=== PATIENT | female | born 1980 | race Caucasian/White ===

== ENCOUNTER 2017-10-06 19:32 | Emergency (ER) | payer SELFPAY | END 2017-10-06 20:55 | disposition home or self-care (01) | LOC: D.ER 19:32 | DX: S50.01XA Contusion of right elbow, initial encounter (principal); S53.401A Unspecified sprain of right elbow, initial encounter; V43.62XA Car passenger injured in collision with other type car in traffic accident, initial encounter; Y93.89 Activity, other specified; Y92.410 Unspecified street and highway as the place of occurrence of the external cause; E11.9 Type 2 diabetes mellitus without complications ==

== ENCOUNTER 2018-02-02 16:44 | Emergency (ER) | payer SELFPAY ==
[2018-02-02] MEDS ORDERED: TYLENOL W/CODEI1 TAB PO (20:37)
[2018-02-02 20:50] VITALS: BP 123/78
== END 2018-02-02 20:50 | disposition home or self-care (01) ==
LOC: D.ER 16:44
DX: M25.561 Pain in right knee (principal)